=== PATIENT | female | born 1990 | race Two or more races ===

== ENCOUNTER 2021-05-02 10:26 | Emergency (ER) | payer BC, MEDICAID, OTHER ==
[~2021-05-02] VITALS: Ht 165.1 cm; Wt 74.8 kg
[2021-05-02 10:58] LABS: Urine Bacteria FEW /hpf (None Seen); Urine Blood Negative /uL (Negative); Urine Hyaline Cast FEW /lpf (0 - 2); Urine Specific Gravity 1.003 (1.001-1.035); Urine WBC <1 /hpf (0 - 5)
[2021-05-02 15:06] VITALS: BP 112/77
== END 2021-05-02 15:12 | disposition home or self-care (01) ==
LOC: ER 10:26
DX: R10.2 Pelvic and perineal pain (principal)
CPT/HCPCS: 76830; 76856; 81001; 81025